=== PATIENT | female | born 1995 | race Caucasian/White ===

== ENCOUNTER 2021-08-21 19:11 | Emergency (ER) | payer OTHER ==
[~2021-08-21] VITALS: Ht 149.9 cm; Wt 65.8 kg
[2021-08-21 19:28] VITALS: BP 105/61
[2021-08-21] MEDS ORDERED: ACETAMINOPHEN 325 MG TAB PO ONE (20:00)
--- NOTE | 2021-08-21 21:55 | NUR ---
Dr. Suarez at triage to exam patient.
[2021-08-21] MEDS ORDERED: ACET-9882 PO (22:03)
[2021-08-21] MEDS ORDERED: IBUP-2213 PO (22:03)
[2021-08-21] MEDS ORDERED: TAM75 PO (22:03)
[2021-08-21 22:19] VITALS: BP 105/61
--- NOTE | 2021-08-21 22:20 | NUR ---
NO NURSING INTERVENTIONS PERFORMED.
--- NOTE | 2021-08-21 22:20 | NUR ---
Patient discharged with v/s stable. Written and verbal after care instructions given and explained. Patient alert, oriented and verbalized understanding of instructions. Ambulatory with steady gait. All questions addressed prior to discharge. ID band removed. Patient advised to follow up with PMD. Rx of IBUPROFEN, ACETAMINOPHEN, AND TAMIFLU given. Patient educated on indication of medication including possible reaction and side effects. Opportunity to ask questions provided and answered. VSS, A/OX4, UNLABORED BREATHING, AMBULATORY, AND CALM DEMEANOR. NO NURSING INTERVENTIONS NEEDED.
== END 2021-08-21 22:20 | disposition home or self-care (01) ==
LOC: MED 19:11
DX: J06.9 Acute upper respiratory infection, unspecified (principal); Z79.899 Other long term (current) drug therapy; Z79.1 Long term (current) use of non-steroidal anti-inflammatories (NSAID)
CPT/HCPCS: 71046; 99283